=== PATIENT | male | born 1985 | race Caucasian/White ===

== ENCOUNTER → 2021-09-09 07:52 | Outpatient (CLI) | payer OTHER, SELFPAY ==
--- NOTE | 2021-09-09 | DI.ECHO.S_ITS ---
[facility] +---------+ : : [address] : [place] : : : : [phone] : : : : Phone: [phone]+ Echocardiogram Report + + :Name: CALLIE CROWDER Study Date: 09/09/2021 Height: 67 in : [id number] ReadingLocation: Weight: 240 lb : : Gender: Male BSA: 2.2 m2 : :: 1985 Age: 36 yrs BP: 150/90 mmHg: :Reason For Study: Essential hypertension : :Ordering Physician: PILAR, : :CA Performed By: Liliana Fuchs : :Referring: CA QUEZADA : + + Interpretation Summary The left ventricle is normal in size and wall thickness. The ejection fraction is estimated to be 60-65%. Left ventricular wall motion is normal. Diastolic parameters suggest probable normal left ventricular diastolic function and normal filling pressures. The right ventricle is normal in size and function. No significant valvular disease. Procedure: A two-dimensional transthoracic echocardiogram with color flow and Doppler was performed. The study quality was technically adequate. There is no prior echocardiogram noted for this patient. The patient was in normal sinus rhythm during the exam. Left Ventricle: The left ventricle is normal in size and wall thickness. The ejection fraction is estimated to be 60-65%. Left ventricular wall motion is normal. Diastolic parameters suggest probable normal left ventricular diastolic function and normal filling pressures. Right Ventricle: The right ventricle is normal in size and function. Atria: Both atria are normal in size. There is no Doppler evidence for an interatrial shunt. Mitral Valve: The mitral valve is normal in structure and function. There is trace mitral regurgitation. Aortic Valve: The aortic valve is normal in structure and function. There is no hemodynamically significant valvular aortic stenosis. No aortic regurgitation is present. Tricuspid Valve: The tricuspid valve is normal in structure and function. There is a trace or physiologic amount of tricuspid regurgitation. Pulmonary artery pressures cannot be estimated because of the lack of a measurable TR jet velocity but the IVC suggests a CVP of around 3 mmHg. Pulmonic Valve: The pulmonic valve leaflets are thin and pliable; valve motion is normal. There is a trace or physiologic amount of pulmonic regurgitation. Great Vessels: The aortic root is normal size. The ascending aorta is normal in size. Mild atherosclerotic plaque(s) in the aortic arch. The pulmonary artery is normal size. The IVC is of normal diameter and collapses greater than 50% with a sniff. This suggests a low right atrial pressure of 3 mm Hg. Pericardium/ Pleura There is no pericardial effusion. MMode/2D Measurements & Calculations LVIDd: 5.1 cm LVOT diam: 2.2 cm LVIDs: 2.6 cm Ao root diam: 3.4 cm FS: 48.0 % asc Aorta Diam: 2.8 cm IVSd: 0.64 cm Ao Arch Diam (Prox Trans): 2.3 cm LVPWd: 0.62 cm LV pham. diameter/BSA (cm/m^2): 2.3 LV sys. diameter/BSA (cm/m^2): 1.2 LA A2 area: 19.4 cm2 RA long axis: 5.2 cm LA A4 area: 22.8 cm2 RA area: 19.7 cm2 LA length (vol): 6.5 cm RA vol: 63.7 ml LA vol: 57.4 ml RA : 29.1 ml/m2 LA vol index: 26.3 ml/m2 IVC diam: 1.7 cm RVD1 (basal): 3.5 cm RVD2 (mid): 3.2 cm TAPSE: 2.1 cm Doppler Measurements & Calculations Ao V2 max: 121.4 cm/sec LVOT Max Young: 93.4 cm/sec Ao V2 mean: 80.0 cm/sec LV V1 max P.5 mmHg Ao max P.9 mmHg LV V1 VTI: 16.0 cm Ao mean P.9 mmHg RICCO(I,D): 2.6 cm2 Ao V2 VTI: 22.2 cm RICCO(V,D): 2.8 cm2 sev ratio: 0.72 RICCO indexed to BSA (cm^2/m^2): 1.2 MV E max young: 77.5 cm/sec PA V2 max: 97.4 cm/sec MV A max young: 49.7 cm/sec PA V2 mean: 69.8 cm/sec MV E/A: 1.6 PA mean P.1 mmHg Med Peak E' Young: 11.8 cm/sec PA Accel Time: 0.08 sec E/E' med: 6.6 Lat Peak E' Young: 14.0 cm/sec E/E' lat: 5.5 E/e' average: 6.1 MV dec time: 0.24 sec SVLVOT): 58.1 ml Reading Physician:PM
== END ==
DX: I10 Essential (primary) hypertension (principal); I70.0 Atherosclerosis of aorta
CPT/HCPCS: 93306